=== PATIENT | female | born 1995 | race Caucasian/White ===

== ENCOUNTER 2017-09-29 16:17 | Emergency (ER) | payer BC, OTHER ==
[~2017-09-29] VITALS: Ht 162.6 cm; Wt 69.4 kg
[2017-09-29 16:51] VITALS: TEMP 37; Ht 162.6 cm; Wt 69.4 kg
[2017-09-29 17:42] LABS: BASO % 0.2 %; BASO ABS # 0.02 K/uL (0-0.2); COMPLETE YES; EOS % 0.1 %; HEMATOCRIT 40.7 % (37-47); IG% 0.2 %; LYMPH % 12.8 %; LYMPH ABS # 1.14 K/uL (1.2-3.4); MEAN CELL VOLUME 89.3 fL (80-100); MEAN CORPUSCULAR HEMOGLOBIN 30.9 pg (25-34); MEAN CORPUSCULAR HGB CONC 34.6 g/dl (32-36); MEAN PLATELET VOLUME 9.6 fL (7.4-10.4); MONO % 3.1 %; NEUT % 83.6 %; PLATELET COUNT 260 K/uL (130-400); RED BLOOD COUNT 4.56 M/uL (4.2-5.4)
[2017-09-29 17:59] LABS: BUN/CREATININE RATIO 16.1 (10-20); CALCIUM 9.2 mg/dl (8.5-10.1); CREATININE 0.69 mg/dl (0.60-1.20); POTASSIUM 3.5 mmol/L (3.5-5.1)
[2017-09-29 18:02] LABS: URINE APPEARANCE CLEAR (CLEAR); URINE BILIRUBIN NEG (NEG); URINE COLOR YELLOW; URINE NITRITE NEG (NEG); URINE SPECIFIC GRAVITY 1.012 (1.000-1.030); UROBILINOGEN NEG (NEG)
[2017-09-29 18:19] LABS: MANUAL MICROSCOPIC REQUIRED? NO; REVIEW REQ? NO
[2017-09-29 19:08] VITALS: BP 118/76; PULSE 67; O2SAT 98
--- NOTE | 2017-09-29 19:18 | EMERGENCY ROOM VISIT NOTE ---
History First contact with patient: 16:56 Chief Complaint: GI ASSESSMENT Stated Complaint: DIARRHEA,ABD PAIN Nursing Triage Summary: patient with nasuea for 5b days. angelica started with diarrhea and abdominal pain and has continues with abdominal pain and nasuea but no diarrhea. did not see [facility]. mom asked if she was was neg. states she cannot consentrate on studying due to pain History of Present Illness The patient is a 21 year old female who presents to the Emergency Room with complaints of intermittent central abdominal discomfort and nausea. She initially had diarrhea the first 3 days, but that has since resolved. She reports that the pain has not radiated elsewhere in the abdomen. She denies any pain radiating into the back or chest. She has not noticed any fever or chills. She did do a urine protein is a test at home that was negative. She is due for menstruation. Last sexual activity was in the past 48 hours, and denies any significant discomfort when doing so. She denies any urinary symptoms. She has had flatulence without belching, and currently rates her discomfort a 7 out of 10. Review of Systems HEENT: Denies dizziness, visual problems, hearing loss, tinnitus. Denies difficulty swallowing or oral lesions. PULMONARY: Denies cough, shortness of breath, sputum production or hemoptysis. CARDIOVASCULAR: Denies chest pain, palpitations, dyspnea on exertion, orthopnea or peripheral edema. GASTROINTESTINAL: See history of present illness GENITOURINARY: Denies dysuria, frequency, urgency or nocturia. NEUROLOGIC: Denies history of epilepsy, CVA, TIA or chronic headaches. MUSCULOSKELETAL: Denies history of joint tenderness/swelling. SKIN: Denies rashes or lesions. PSYCHIATRIC: Denies history of depression or mental illness. ENDOCRINE: Denies history of diabetes or thyroid disorders. 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 Alert and oriented X 3 with positive affect. Patient does not appear acutely ill or toxic, nor does she appear in any acute distress. HEENT: Normocephalic, atraumatic. Pupils equal, round and reactive. Ears and nares are clear. No rhinorrhea noted. Nose icterus or conjunctival injection/ pallor. OROPHARYNX: No posterior pharyngeal erythema. Mucous membranes are moist. NECK: Full active range of motion without discomfort. RESPIRATORY: Clear to auscultation bilaterally with no wheezing, crackles, rhonchi or stridor. CARDIOVASCULAR: Regular rate and rhythm with no murmurs, rubs or gallops. GASTROINTESTINAL: Bowel sounds present in all quadrants. Patient has mild central and lower tenderness to palpation without rigidity, guarding or rebound. Negative McBurney's point tenderness. Negative Rovsing sign. Negative psoas/obturator sign. Negative heel tap. Negative CVA tenderness. No focal left lower quadrant tenderness to palpation. No obvious hepatosplenomegaly. MUSCULOSKELETAL: Full range of motion of all joints without discomfort. INTEGUMENTARY: No rash or other significant dermatologic conditions noted. HEMATOLOGIC: No ecchymosis or petechiae. NEUROLOGIC: No focal neurologic deficits noted. Medical Decision & Procedures Laboratory Results 09/29/17 17:30 Red Blood Count 4.56, Mean Corpuscular Volume 89.3, Mean Corpuscular Hemoglobin 30.9, Mean Corpuscular Hemoglobin Concent 34.6, Mean Platelet Volume 9.6, Neutrophils (%) (Auto) 83.6, Lymphocytes (%) (Auto) 12.8, Monocytes (%) (Auto) 3.1, Eosinophils (%) (Auto) 0.1, Basophils (%) (Auto) 0.2, Neutrophils # (Auto) 7.43, Lymphocytes # (Auto) 1.14, Monocytes # (Auto) 0.28, Eosinophils # (Auto) 0.01, Basophils # (Auto) 0.02 09/29/17 17:30 Test 09/29/17 17:30 09/29/17 17:45 White Blood Count 8.90 K/uL (4.8-10.8) Red Blood Count 4.56 M/uL (4.2-5.4) Hemoglobin 14.1 g/dL (12.0-16.0) Hematocrit 40.7 % (37-47) Mean Corpuscular Volume 89.3 fL (80-100) Mean Corpuscular Hemoglobin 30.9 pg (25-34) Mean Corpuscular Hemoglobin Concent 34.6 g/dl (32-36) Platelet Count 260 K/uL (130-400) Mean Platelet Volume 9.6 fL (7.4-10.4) Neutrophils (%) (Auto) 83.6 % Lymphocytes (%) (Auto) 12.8 % Monocytes (%) (Auto) 3.1 % Eosinophils (%) (Auto) 0.1 % Basophils (%) (Auto) 0.2 % Neutrophils # (Auto) 7.43 K/uL (1.4-6.5) Lymphocytes # (Auto) 1.14 K/uL (1.2-3.4) Monocytes # (Auto) 0.28 K/uL (0.11-0.59) Eosinophils # (Auto) 0.01 K/uL (0-0.5) Basophils # (Auto) 0.02 K/uL (0-0.2) RDW Standard Deviation 40.4 fL (36.4-46.3) RDW Coefficient of Variation 12.6 % (11.5-14.5) Immature Granulocyte % (Auto) 0.2 % Immature Granulocyte # (Auto) 0.02 K/uL (0.00-0.02) Anion Gap 7.0 mmol/L (3-11) Est Creatinine Clear Calc Drug Dose 125.5 ml/min Estimated GFR () 146.3 Estimated GFR (Non- 126.2 BUN/Creatinine Ratio 16.1 (10-20) Calcium Level 9.2 mg/dl (8.5-10.1) Urine Color YELLOW Urine Appearance CLEAR (CLEAR) Urine pH 5.0 (4.5-7.5) Urine Specific [place] 1.012 (1.000-1.030) Urine Protein NEG (NEG) Urine Glucose (UA) NEG (NEG) Urine Ketones NEG (NEG) Urine Occult Blood NEG (NEG) Urine Nitrite NEG (NEG) Urine Bilirubin NEG (NEG) Urine Urobilinogen NEG (NEG) Urine Leukocyte Esterase NEG (NEG) Urine Test NEG (NEG) The above labs were reviewed, and were grossly normal. Urine was negative. ED Course Patient history and physical exam were performed. Nurse's notes were reviewed. Vital signs were reviewed and were normal. The patient refused any analgesics or antiemetics. Did spend some time talking with the patient about differential diagnoses for her pain. The patient then requested that I speak with her mother, who is a veterinary manager, regarding further workup. I did speak with the mother who wanted to minimize workup, suggesting that the patient's symptoms seemed to be mostly viral etiology. I again discussed differentials with the mother, and suggested that at least baseline lab work be performed. She only wanted a CBC performed, although I suggested LFTs and lipase. I did explain to the patient prior to discussing with the mother that a partial renal profile should also be performed. The mother deferred any imaging studies at this point, and stated that the patient could always come back to the emergency department if her symptoms are worsening. The patient was in agreement with this plan of workup. IV access was established and labs were drawn. Review of labs did not show any acute abnormalities. At this point, the patient reported that she would return to the emergency department with any progressively worsening symptoms. The patient was provided a prescription for Zofran ODT as needed for nausea. She was encouraged to avoid any GI irritants such as caffeine, alcohol and NSAIDs. Tylenol as needed for pain. The patient was happy with plan of care, and denied any significant discomfort or nausea at the time of discharge. Medical Decision Patient workup today was limited at the request of the mother and patient. Several different differentials were discussed with the patient and mother via telephone conversation. Those are summarized in the previous Course section. At this point, the patient appears to be hemodynamically stable. She is afebrile and has no leukocytosis, or physical exam findings to suggest a surgical abdomen. Her symptoms have been intermittent. Her urinalysis does not show any evidence for hematuria or infection, and the patient has no clinical exam findings to suggest pyelonephritis, peritonitis, appendicitis or diverticulitis. Given the patient's symptoms have been GI related, mesenteric adenitis and gastroenteritis is certainly possible. She has had no rectal bleeding to suggest Crohn's disease, ulcerative colitis or colitis, although this is certainly possible. Any further imaging studies were deferred by the patient and mother. Medication Reconcilliation Current Medication List: was personally reviewed by me Blood Pressure Screening Patient's blood pressure: Normal blood pressure Impression Primary Impression: Lower abdominal pain Departure Information Prescriptions No Active Prescriptions or Reported Meds Referrals [facility] (PCP) Patient Instructions My [facility]
== END 2017-09-29 19:09 | disposition home or self-care (01) ==
LOC: C.EDB 16:20 → C.EDA 19:09
DX: R10.30 Lower abdominal pain, unspecified (principal); Z80.9 Family history of malignant neoplasm, unspecified; Z82.49 Family history of ischemic heart disease and other diseases of the circulatory system

== ENCOUNTER 2017-10-06 23:47 | Emergency (ER) | payer OTHER ==
[~2017-10-06] VITALS: Ht 162.6 cm; Wt 70.8 kg
[2017-10-06 23:51] VITALS: TEMP 36.5; Ht 162.6 cm; Wt 70.8 kg
[2017-10-07] MEDS ORDERED: ONDANSETRON INJ 2 MG/ML 2 ML VIAL IV STA (00:07)
[2017-10-07] MEDS ORDERED: SODIUM CHLORIDE 0.9% 1000ML 1,000 ML IV ONE (00:15)
[2017-10-07 00:27] LABS: BASO % 0.4 %; BASO ABS # 0.03 K/uL (0-0.2); COMPLETE YES; EOS % 2.9 %; HEMATOCRIT 38.8 % (37-47); IG% 0.1 %; MEAN CELL VOLUME 89.2 fL (80-100); MEAN CORPUSCULAR HEMOGLOBIN 30.6 pg (25-34); MEAN CORPUSCULAR HGB CONC 34.3 g/dl (32-36); MEAN PLATELET VOLUME 9.1 fL (7.4-10.4); MONO % 5.2 %; NEUT % 43.4 %; PLATELET COUNT 254 K/uL (130-400); RED BLOOD COUNT 4.35 M/uL (4.2-5.4); WHITE BLOOD COUNT 6.87 K/uL (4.8-10.8)
[2017-10-07 00:31] LABS: URINE APPEARANCE CLEAR (CLEAR); URINE BILIRUBIN NEG (NEG); URINE COLOR YELLOW; URINE NITRITE NEG (NEG); UROBILINOGEN NEG (NEG); ZZUR CULT IF INDIC CLEAN CATCH NO
[2017-10-07 00:38] LABS: MANUAL MICROSCOPIC REQUIRED? NO; REVIEW REQ? NO
[2017-10-07 00:50] LABS: CALCIUM 8.6 mg/dl (8.5-10.1); CREATININE 0.68 mg/dl (0.60-1.20); POTASSIUM 3.1 mmol/L (3.5-5.1)
[2017-10-07 00:52] LABS: ALB/GLOB RATIO 0.9 (0.9-2)
[2017-10-07] MEDS ORDERED: OPTIRAY 320 IV PRN (02:15)
[2017-10-07 05:56] VITALS: BP 127/65; PULSE 66; O2SAT 98
--- NOTE | 2017-10-07 06:55 | DIAGNOSTIC IMAGING REPORT ---
ABD/PELVIS IV AND ORAL CONT CT DOSE: 328.44 mGy.cm HISTORY: Pain. Nausea. abd pain TECHNIQUE: Multiaxial CT images of the abdomen and pelvis were performed following the use of intravenous and oral contrast. A dose lowering technique was utilized adhering to the principles of ALARA. COMPARISON STUDY: None. FINDINGS: Lung bases are clear. Liver spleen and pancreas are unremarkable. The kidneys enhance uniformly. Subtle thickening of several loops of small bowel with several mesenteric nodes. The appendix is normal. Bowel pattern is nonobstructive. Uterus is anteflexed. Several small ovarian follicular cysts bilaterally. Bladder is midline. IMPRESSION: 1. Mild nonspecific nonobstructive enteritis. 2. Mild mesenteric adenitis. 3. Otherwise negative study. The above report was generated using voice recognition software. It may contain grammatical, syntax or spelling errors. Electronically signed by: Rafael Recinos M.D. 10/07/2017 6:54 AM Dictated Date/Time: 10/07/2017 6:53 AM
--- NOTE | 2017-10-07 22:30 | EMERGENCY ROOM VISIT NOTE ---
History First contact with patient: 23:55 Chief Complaint: ABDOMINAL PAIN Stated Complaint: SEVERE ABDOMINAL PAIN History of Present Illness The patient is a 21 year old female who presents to the Emergency Room with complaints of ongoing pain and no abdominal pain for the past 2-3 weeks. The patient was initially seen and evaluated at this facility around 2 weeks ago with this complaint. She had blood work that was performed at that time was essentially normal. She has not followed with any additional providers since that visit. She states her pain continues, and food seems to worsen her symptoms. The patient does not have upper quadrant pain, and again states her symptoms are essentially red around her bellybutton. She was offered CT scan at initial visit, but declined. She would like this today if appropriate. She states her pain currently is a 5/10, but is a 7/10 at worst. She has not taken anything [id number] for her discomfort. She denies chance of . She does not have other complaints. Review of Systems More than 10 systems were reviewed and otherwise negative with the exception of history of present illness. Past Medical/Surgical History Medical Problems: (1) No significant past medical history Surgical Problems: (1) No history of previous surgery Family History FH: cancer FH: heart disease FH: hypertension FH: lung disease Social History Smoking Status: Never Smoker Alcohol Use: none Marital Status: single Housing Status: lives with roommate Occupation Status: [employer] student Current/Historical Medications No Active Prescriptions or Reported Meds Physical Exam Vital Signs Date Time Temp Pulse Resp B/P (MAP) Pulse Ox O2 Delivery O2 Flow Rate FiO2 10/07/17 05:56 66 20 127/65 98 10/07/17 03:32 88 18 147/84 96 Room Air 10/07/17 03:18 89 16 132/76 98 Room Air 10/07/17 02:15 88 18 128/82 98 Room Air 10/06/17 23:51 36.5 95 20 147/88 99 Room Air Physical Exam VITALS: Vitals are noted on the nurse's note and reviewed by myself. Vital signs stable. GENERAL: Well-developed, well-nourished, white female, who is in no acute distress and resting comfortably. Patient is cooperative with the examination. HEAD: Normocephalic atraumatic. EARS: External ear normal. External auditory canals clear, tympanic membranes pearly hernandez without erythema or effusion bilaterally. EYES: Pupils equal round and reactive to light and accommodation. Conjunctivae without injection, sclerae without icterus. Extraocular movements intact. NOSE: Patent, turbinates without inflammation or discharge. MOUTH: Mucous membranes moist. Tonsils are not enlarged. Pharynx without erythema, blood, or exudate. Uvula midline. Airway patent. NECK: Supple without nuchal rigidity. No lymphadenopathy. No thyromegaly. Cervical spine is nontender. HEART: Regular rate and rhythm without murmurs gallops or rubs. LUNGS: Clear to auscultation bilaterally without wheezes, rales or rhonchi. No retractions or accessory muscle use. ABDOMEN: Positive normal bowel sounds x 4. Soft, nontender, without masses or organomegaly. No guarding or rebound tenderness. MUSCULOSKELETAL: No muscle atrophy, erythema, or edema noted. Full range of motion without joint tenderness in all extremities. Medical Decision & Procedures ER Provider Diagnostic Interpretation: ABD/PELVIS IV AND ORAL CONT CT DOSE: 328.44 mGy.cm HISTORY: Pain. Nausea. abd pain TECHNIQUE: Multiaxial CT images of the abdomen and pelvis were performed following the use of intravenous and oral contrast. A dose lowering technique was utilized adhering to the principles of ALARA. COMPARISON STUDY: None. FINDINGS: Lung bases are clear. Liver spleen and pancreas are unremarkable. The kidneys enhance uniformly. Subtle thickening of several loops of small bowel with several mesenteric nodes. The appendix is normal. Bowel pattern is nonobstructive. Uterus is anteflexed. Several small ovarian follicular cysts bilaterally. Bladder is midline. IMPRESSION: 1. Mild nonspecific nonobstructive enteritis. 2. Mild mesenteric adenitis. 3. Otherwise negative study. Laboratory Results 10/07/17 00:05 Red Blood Count 4.35, Mean Corpuscular Volume 89.2, Mean Corpuscular Hemoglobin 30.6, Mean Corpuscular Hemoglobin Concent 34.3, Mean Platelet Volume 9.1, Neutrophils (%) (Auto) 43.4, Lymphocytes (%) (Auto) 48.0, Monocytes (%) (Auto) 5.2, Eosinophils (%) (Auto) 2.9, Basophils (%) (Auto) 0.4, Neutrophils # (Auto) 2.97, Lymphocytes # (Auto) 3.30, Monocytes # (Auto) 0.36, Eosinophils # (Auto) 0.20, Basophils # (Auto) 0.03 10/07/17 00:05 Test 10/07/17 00:05 10/07/17 00:15 White Blood Count 6.87 K/uL (4.8-10.8) Red Blood Count 4.35 M/uL (4.2-5.4) Hemoglobin 13.3 g/dL (12.0-16.0) Hematocrit 38.8 % (37-47) Mean Corpuscular Volume 89.2 fL (80-100) Mean Corpuscular Hemoglobin 30.6 pg (25-34) Mean Corpuscular Hemoglobin Concent 34.3 g/dl (32-36) Platelet Count 254 K/uL (130-400) Mean Platelet Volume 9.1 fL (7.4-10.4) Neutrophils (%) (Auto) 43.4 % Lymphocytes (%) (Auto) 48.0 % Monocytes (%) (Auto) 5.2 % Eosinophils (%) (Auto) 2.9 % Basophils (%) (Auto) 0.4 % Neutrophils # (Auto) 2.97 K/uL (1.4-6.5) Lymphocytes # (Auto) 3.30 K/uL (1.2-3.4) Monocytes # (Auto) 0.36 K/uL (0.11-0.59) Eosinophils # (Auto) 0.20 K/uL (0-0.5) Basophils # (Auto) 0.03 K/uL (0-0.2) RDW Standard Deviation 40.0 fL (36.4-46.3) RDW Coefficient of Variation 12.4 % (11.5-14.5) Immature Granulocyte % (Auto) 0.1 % Immature Granulocyte # (Auto) 0.01 K/uL (0.00-0.02) Anion Gap 6.0 mmol/L (3-11) Est Creatinine Clear Calc Drug Dose 128.5 ml/min Estimated GFR () 147.0 Estimated GFR (Non- 126.8 BUN/Creatinine Ratio 16.0 (10-20) Calcium Level 8.6 mg/dl (8.5-10.1) Total Bilirubin 0.3 mg/dl (0.2-1) Aspartate Amino Transf (AST/SGOT) 18 U/L (15-37) Alanine Aminotransferase (ALT/SGPT) 25 U/L (12-78) Alkaline Phosphatase 70 U/L (45-117) Total Protein 7.7 gm/dl (6.4-8.2) Albumin 3.7 gm/dl (3.4-5.0) Globulin 4.0 gm/dl (2.5-4.0) Albumin/Globulin Ratio 0.9 (0.9-2) Lipase 115 U/L (73-393) Urine Color YELLOW Urine Appearance CLEAR (CLEAR) Urine pH 7.0 (4.5-7.5) Urine Specific [place] 1.010 (1.000-1.030) Urine Protein NEG (NEG) Urine Glucose (UA) NEG (NEG) Urine Ketones NEG (NEG) Urine Occult Blood NEG (NEG) Urine Nitrite NEG (NEG) Urine Bilirubin NEG (NEG) Urine Urobilinogen NEG (NEG) Urine Leukocyte Esterase NEG (NEG) Urine Test NEG (NEG) Medications Administered Medications (Trade) Dose Ordered Sig/Mateusz Route Start Time Stop Time Status Last Admin Dose Admin Sodium Chloride 1,000 ml @ 999 mls/hr Q1H1M ONCE IV 10/07/17 00:15 10/07/17 01:15 DC 10/07/17 00:15 999 MLS/HR Ondansetron HCl (Zofran Inj) 4 mg NOW STAT IV 10/07/17 00:07 10/07/17 00:09 DC 10/07/17 00:07 4 MG ED Course Physical exam and history were performed. Nursing notes, EMR, and Medication List were personally reviewed. Patient appears to have generalized abdominal discomfort that is worse after eating for the past 2 weeks. On examination she does not have significant reproducible tenderness. She does not have a history of abdominal surgery, and I did discuss options of care with the patient. After lengthy discussion with the patient IV access was established. She was hydrated and medicated as above. I did elect perform CT scan with oral and IV contrast. The patient's blood work is as above and was reviewed. She does not have a significantly elevated white blood cell count, gross anemia, bandemia, or significant electrolyte imbalance. Lipase and transaminases are nondiagnostic. Urine is without evidence of infection or . CT scans shows perhaps a mild enteritis and mild mesenteric adenitis. I clinically suspect these are most consistent with viral etiology, as the patient does not have a history of inflammatory bowel disease. Overall the patient appears well for discharge home. I do feel it is reasonable for her to follow with gastroenterology. I will provide her information to assist with this process, although she may wish to do so when she returns home. She was given discharge instructions as below. The patient was pleased with this plan and voiced understanding. The chart was completed utilizing [employer] Speech Voice Recognition Software. Grammatical errors, random word insertions, pronoun errors, and incomplete sentences are an occasional consequence of this system due to software limitations, ambient noise, and hardware issues. Any formal questions or concerns about the content, text, or information contained within the body of this dictation should be directly addressed to the provider for clarification. . Medical Decision Differential diagnosis: Etiologies such as appendicitis, diverticulitis, PUD, biliary pathology, UTI, pancreatitis, obstruction, mesenteric ischemia, aortic pathology, infections, inflammatory bowel disease, renal colic, as well as others were entertained. Impression Primary Impression: Abdominal pain Departure Information Dispostion Home / Self-Care Condition GOOD Prescriptions No Active Prescriptions or Reported Meds Referrals Wilmer Luo MD Forms HOME CARE DOCUMENTATION FORM, IMPORTANT VISIT INFORMATION Patient Instructions My [facility] Additional Instructions You were seen and evaluated today on an emergency basis only. This is not a substitute for, or an effort to provide, complete comprehensive medical care. It is not possible to recognize and treat all injuries or illnesses in a single emergency department visit. For this reason it is recommended that you followup with Gastroenterology, Dr. Luo's office, for ongoing care and evaluation. Drink plenty of fluids and remain well hydrated. You are welcome to return to the emergency department anytime with new, worsening, or concerning symptoms.
== END 2017-10-07 05:57 | disposition home or self-care (01) ==
LOC: C.EDB 23:48
DX: R10.9 Unspecified abdominal pain (principal); Z80.9 Family history of malignant neoplasm, unspecified; Z82.49 Family history of ischemic heart disease and other diseases of the circulatory system